=== PATIENT | female | born 1995 | race Caucasian/White ===

== ENCOUNTER 2019-01-18 02:30 | Emergency (ER) | payer OTHER ==
[2019-01-18] MEDS ORDERED: Lidocaine Viscous Sol 2% 15 ml UD Cup ONE (03:07)
[2019-01-18] MEDS ORDERED: Mag-Al 1200 mg/1200 mg/30 ML UDCUP ONE (03:07)
[2019-01-18 03:43] LABS: #Basophils 0.1 thou/uL (0.0-0.2); #Eosinphils 0.2 thou/uL (0.0-0.7); #Lymphocytes 2.6 thou/uL (1.20-3.40); %Basophils 0.4 % (0.0-1.0); %Eosinophils 1.3 % (0.0-10.0); %Lymphocytes 16.4 % (21.0-51.0); %Monocytes 6.3 % (0.0-10.0); %Neutrophils 75.6 % (42.0-75.0); Hemoglobin 12.5 g/dL (12.0-16.0); Mean Corpuscular HGB CONC 34.7 g/dL (32.0-36.0); Mean Corpuscular Volume 86.2 fL (78.0-98.0); Mean Platelet Volume 8.7 fL (7.4-10.4); Platelet Count 198 thou/uL (130-400); RBC Distribution Width 12.6 % (11.5-14.5); Red Blood Cell (RBC) Count 4.17 mill/uL (4.20-5.40); White Blood Cell (WBC) Count 15.8 thou/uL (4.8-10.8)
[2019-01-18 03:56] LABS: ALT (SGPT) 18 U/L (8-55); AST (SGOT) 19 U/L (5-34); Albumin 3.6 g/dL (3.5-5.0); Alkaline Phosphatase 75 U/L (40-110); Anion Gap 13 mmol/L (10-20); BUN (Urea Nitrogen) 7 mg/dL (7.0-18.7); Bilirubin, Total 0.4 mg/dL (0.2-1.2); Calc. Creatinine Clearance 0 mL/min (70-130); Calcium 9.4 mg/dL (7.8-10.44); Carbon Dioxide 21 mmol/L (22-29); Chloride 106 mmol/L (98-107); Estimated GFR-MDRD Greater than 90; Globulin 3.5 g/dL (2.4-3.5); Glucose 81 mg/dL (70-105); Lipase 22 U/L (8-78); Potassium 3.6 mmol/L (3.5-5.1); Protein, Total 7.1 g/dL (6.0-8.3); Sodium 136 mmol/L (136-145)
--- NOTE | 2019-01-18 07:29 | CT ---
CTA THORAX UTILIZING IV CONTRAST WITH PE PROTOCOL AND 3D REFORMATTED IMAGING: Date: 01/18/19 INDICATION: History of dyspnea, chest pain, and elevated D-Dimer. FINDINGS: No central or segmental pulmonary embolus evident. The lungs are clear. No pleural effusion evident. No enlarged lymph nodes present. No acute osseous abnormality evident. IMPRESSION: No central or segmental pulmonary embolus. POS: BH
--- NOTE | 2019-01-18 07:36 | RAD ---
CHEST 2 VIEWS: INDICATION: Shortness of breath and chest pain. COMPARISON: None. FINDINGS: There is a skin fold overlying the left lateral hemithorax. No consolidation, pleural effusion, or p neumothorax is grossly evident. Cardiomediastinal silhouette is within normal limits. No acute osse ous abnormality is evident. IMPRESSION: No acute cardiopulmonary abnormality. POS: BH
[2019-01-18] MEDS ORDERED: Iopamidol-370 76% 500 ML 1 ML ONE (12:44)
== END 2019-01-18 06:02 | disposition home or self-care (01) ==
LOC: ERS 02:30
DX: O99.89 Other specified diseases and conditions complicating pregnancy, childbirth and the puerperium (principal); R07.89 Other chest pain; R10.13 Epigastric pain; Z3A.18 18 weeks gestation of pregnancy
CPT/HCPCS: 36415; 71046; 71275; 80053; 83690; 84484; 85025; 85379; Q9967

== ENCOUNTER 2019-06-17 03:50 | Inpatient (IN) | payer OTHER ==
[2019-06-17 04:06] VITALS: BMI 39.4
[2019-06-17] MEDS ORDERED: Butorphanol Tartrate 1 MG/ML VIAL ONE (05:24)
[2019-06-17] MEDS ORDERED: Lidocaine 1% (PF) 30 ML VIAL SC PRN (07:14)
[2019-06-17] MEDS ORDERED: Lactated Ringer's 1,000 ML IV SCH (07:14)
[2019-06-17] MEDS ORDERED: Butorphanol Tartrate 1 MG/ML VIAL SLOW IVP PRN (07:14)
[2019-06-17] MEDS ORDERED: Ondansetron PF 4 MG/2 ML Vial IVP PRN ×3 (07:14→17:06)
[2019-06-17] MEDS ORDERED: Promethazine HCl 25 MG/ML VIAL IM PRN ×3 (07:14→17:06)
[2019-06-17] MEDS ORDERED: NS w/ Oxytocin 10 units 500 ML IV SCH (07:14)
[2019-06-17] MEDS ORDERED: hydrALAZINE 20 MG/ML VIAL SLOW IVP PRN ×2 (07:14→17:06)
[2019-06-17] MEDS ORDERED: Ibuprofen 800 MG TAB PO PRN (07:14)
[2019-06-17] MEDS ORDERED: HYDROcodone/Acetaminophen 5/325 mg Tablet PO PRN ×4 (07:14→17:06)
[2019-06-17] MEDS: Lactated Ringer's 1,000 ML IV SCH ×2 (07:15→08:30)
[2019-06-17] MEDS ORDERED: Fentanyl 4 mcg/Bup 0.1% Cadd 100 ML ONE ×2 (07:24→13:38)
[2019-06-17 07:37] LABS: Hemoglobin 13.5 g/dL (12.0-16.0); Mean Corpuscular HGB CONC 33.6 g/dL (32.0-36.0); Mean Corpuscular Hemoglobin 29.1 pg (27.0-31.0); Mean Corpuscular Volume 86.6 fL (78.0-98.0); Mean Platelet Volume 9.9 fL (7.4-10.4); Platelet Count 163 thou/uL (130-400); RBC Distribution Width 15.1 % (11.5-14.5); Red Blood Cell (RBC) Count 4.64 mill/uL (4.20-5.40); White Blood Cell (WBC) Count 14.2 thou/uL (4.8-10.8)
[2019-06-17] MEDS ORDERED: EPHEDRINE 25 MG/5 ML SYRINGE SLOW IVP PRN (07:39)
[2019-06-17] MEDS ORDERED: Lactated Ringer's 500 ML IV PRN (07:39)
[2019-06-17] MEDS ORDERED: Naloxone HCl 0.4 mg/ml Vial IVP PRN ×2 (07:39)
[2019-06-17] MEDS ORDERED: Acetaminophen 325 MG TAB PO PRN (07:39)
[2019-06-17] MEDS ORDERED: diphenhydrAMINE 50 MG/ML VIAL IVP PRN (07:39)
[2019-06-17] MEDS ORDERED: Fentanyl 100 MCG/2 ML VIAL ONE (07:40)
[2019-06-17] MEDS ORDERED: Fentanyl 4 mcg/Bupivacaine 0.1% Cassette 100 ML EPIDURAL SCH (07:45)
[2019-06-17] MEDS ORDERED: Communication Order-Pharmacy FS SCH (07:45)
[2019-06-17 08:15] LABS: HBSAg Index 0.18 S/CO (0-0.99); Hep B Surf Ag Non-Reactive S/CO (NonReactive)
--- NOTE | 2019-06-17 08:20 | PDOC.LDHP ---
Labor and Delivery H&P Chief complaint: contractions Current gestational age (weeks): 40 Dating criteria: last menstrual period Current complications: none Abnormal US findings: No Current medications: pre-shama vitamins Previous surgical history: none Allergies/Adverse Reactions: Allergies Allergy/AdvReac Type Severity Reaction Status Date / Time No Known Allergies Allergy Unverified 06/17/19 03:59 Social history: none - Physical Exam Vital signs reviewed and normal: yes General: NAD Heart: RRR Lungs: CTAB Abdomen: gravid Extremeties: no edema FHT: category 1 [place] contractions every: 5min - Vaginal Exam cm dilated: 3 Effacement: 90% Station: -2 (arom clear) - Assessment L&D Assessment: term patient in labor - Plan Plan: admit to L&D, labor augmentation if indicated, informed consent obtained, anesthesia consult for pain management
[2019-06-17 08:26] LABS: Syphilis Antibody Nonreactive (Nonreactive); Syphilis Antibody Index 0.06 S/CO (<1.00 Non-Reactive)
[2019-06-17] MEDS: NS / Oxytocin 40 units/1000ml 1,000 ML IV PRN ×2 (15:06→16:19)
--- NOTE | 2019-06-17 15:25 | PDOC.OPDEL ---
OB Operative/Delivery Note Delivery Dr/Surgeon: Carleen Assist: n/a Pre-Delivery Diagnosis: active labor Procedure/Post Delivery Dx: operative vaginal delivery (VE) Weeks gestation: 40 Anesthesia: epidural - Findings A Sex: female - 1 min: 8 - 5 min: 9 - Additional Findings/Plan Placenta delivered: spontaneous Repaired Obstetrical Laceration: 2nd degree Estimated blood loss: 250cc Post delivery plan: routine recovery
[2019-06-17] MEDS ORDERED: diphenhydrAMINE 25 MG CAP PO PRN (17:06)
[2019-06-17] MEDS ORDERED: Lanolin Ointment 7 GM TUBE TOP PRN (17:06)
[2019-06-17] MEDS ORDERED: Preparation H Ointment 28 GM TUBE PR PRN (17:06)
[2019-06-17] MEDS ORDERED: Benzocaine-Menthol 82.5 ML CAN TOP PRN (17:06)
[2019-06-17] MEDS ORDERED: Milk Of Magnesia 30 ML UDCUP PO PRN (17:06)
[2019-06-17] MEDS ORDERED: Bisacodyl 10 MG SUPP PR PRN (17:06)
[2019-06-17] MEDS ORDERED: NS / Oxytocin 40 units/1000ml 1,000 ML IV SCH (17:06)
[2019-06-17] MEDS: Ferrous Sulfate 325 MG TAB PO SCH (18:03)
[2019-06-17] MEDS: Ibuprofen 800 MG TAB PO SCH (21:32)
[2019-06-17] MEDS: Docusate Calcium (SURFAK) 240 MG CAP PO SCH (21:32)
[2019-06-18] MEDS: Ibuprofen 800 MG TAB PO SCH ×3 (05:40→23:03)
--- NOTE | 2019-06-18 06:52 | PDOC.PP ---
Post Progress Note Post Day #: 0-1 PO intake tolerated: yes Flatus: yes Ambulation: yes Vital Signs (12 hours) Temp Pulse Resp BP Pulse Ox 06/18/19 04:00 97.8 F 100 16 106/52 L 97 06/18/19 00:00 99.1 F 101 H 16 101/56 L 97 06/17/19 20:00 97.8 F 100 16 115/69 100 Weight Weight 230 lb Result Diagrams: 06/17/19 07:11 Additional Labs: Post Labs Blood Type B POSITIVE 06/17/19 08:00 Hep Bs Antigen Non-Reactive S/CO (NonReactive) 06/17/19 07:11 - Assessment/Plan Post day 0-1. primipara. consult today. Anticipate discharge in AM.
[2019-06-18] MEDS: Docusate Calcium (SURFAK) 240 MG CAP PO SCH ×2 (08:35→23:03)
[2019-06-18] MEDS: Prenatal Vitamin 1 TAB PO SCH (08:35)
[2019-06-18] MEDS: Ferrous Sulfate 325 MG TAB PO SCH ×2 (08:37→17:20)
[2019-06-18] MEDS ORDERED: Adacel (T-DAP) 0.5 ML SYRINGE IM ONE (09:00)
[2019-06-19] MEDS: Ibuprofen 800 MG TAB PO SCH ×2 (05:53→13:43)
[2019-06-19] MEDS: Ferrous Sulfate 325 MG TAB PO SCH ×2 (08:32→18:03)
[2019-06-19] MEDS: Docusate Calcium (SURFAK) 240 MG CAP PO SCH (08:37)
[2019-06-19] MEDS: Prenatal Vitamin 1 TAB PO SCH (08:37)
[2019-06-19 08:54] VITALS: TEMP 97.7
[2019-06-19 12:02] VITALS: BP 100/72
== END 2019-06-19 18:15 | disposition home or self-care (01) | DRG 807 ==
LOC: L&D/OP 03:50 → L&D 06:26 → 3SE 18:05
PROVIDERS: ADMIT Student in an Organized Health Care Education/Training Program; ATTEND Student in an Organized Health Care Education/Training Program
PROC: 10E0XZZ Delivery of Products of Conception, External Approach (ICD-10-PCS; principal; 2019-06-17)
PROC: 0KQM0ZZ Repair Perineum Muscle, Open Approach (ICD-10-PCS; 2019-06-17)
DX: O70.1 Second degree perineal laceration during delivery (principal); Z37.0 Single live birth; Z3A.40 40 weeks gestation of pregnancy
CPT/HCPCS: 36415; 85027; 86780; 86850; 86900; 86901; 87340; J0595; J2001; J2590; J3010

== ENCOUNTER 2020-03-22 10:54 | Emergency (ER) | payer OTHER ==
[2020-03-22 11:50] LABS: #Basophils 0.1 thou/uL (0.0-0.2); #Eosinphils 0.2 thou/uL (0.0-0.7); #Lymphocytes 2.1 thou/uL (1.20-3.40); #Monocytes 0.4 thou/uL (0.11-0.59); #Neutrophils 4.9 thou/uL (1.40-6.50); %Basophils 0.9 % (0.0-1.0); %Eosinophils 2.1 % (0.0-10.0); %Lymphocytes 27.7 % (21.0-51.0); %Monocytes 5.4 % (0.0-10.0); Hemoglobin 15.7 g/dL (12.0-16.0); Mean Corpuscular HGB CONC 34.2 g/dL (32.0-36.0); Mean Corpuscular Hemoglobin 30.2 pg (27.0-31.0); Mean Corpuscular Volume 88.2 fL (78.0-98.0); Mean Platelet Volume 8.9 fL (7.4-10.4); Platelet Count 218 thou/uL (130-400); RBC Distribution Width 11.8 % (11.5-14.5); Red Blood Cell (RBC) Count 5.19 mill/uL (4.20-5.40); White Blood Cell (WBC) Count 7.6 thou/uL (4.8-10.8)
[2020-03-22 11:57] LABS: BHCG - Serum Negative (NEGATIVE); Pregs Control Background? CLEAR/WHITE (CLR/WHITE); Pregs Control Bar Appear? YES (CONTROL BAR)
[2020-03-22 12:12] LABS: ALT (SGPT) 17 U/L (8-55); AST (SGOT) 18 U/L (5-34); Albumin 4.5 g/dL (3.5-5.0); Alkaline Phosphatase 108 U/L (40-110); Anion Gap 13 mmol/L (10-20); BUN (Urea Nitrogen) 12 mg/dL (7.0-18.7); Bilirubin, Total 0.6 mg/dL (0.2-1.2); Calc. Creatinine Clearance 0 mL/min (70-130); Calcium 9.5 mg/dL (7.8-10.44); Carbon Dioxide 28 mmol/L (22-29); Chloride 100 mmol/L (98-107); Globulin 4.1 g/dL (2.4-3.5); Glucose 86 mg/dL (70-105); Potassium 3.7 mmol/L (3.5-5.1); Protein, Total 8.6 g/dL (6.0-8.3); Sodium 137 mmol/L (136-145)
== END 2020-03-22 13:08 | disposition home or self-care (01) ==
LOC: ERS 10:54
DX: R42 Dizziness and giddiness (principal)
CPT/HCPCS: 36415; 71045; 80053; 84703; 85025; 93005